=== PATIENT | female | born 1980 | race Caucasian/White ===

== ENCOUNTER 2019-08-04 13:45 | Inpatient (IN) | payer OTHER ==
[~2019-08-04] VITALS: Ht 160 cm; Wt 53.2 kg
[~2019-08-04 13:45] MED LIST: CYCLOBENZAPRINE10 MG PO; FLEXERIL PO; HYDROCODON-ACE1 EAC7 PO; IBUPROFEN 800800 M1 PO; IBUPROFEN 800800 MG PO; NORCO 5-325 TA1 EACH PO; ONDANSETRON HCL4 M2 PO; PAXIL10 MG PO; PERCOCET 5-3251 EACH PO; PROMETHAZINE12.5 M1 PO; SERTRALINE HCL100 MG PO; TRAMADOL 50 MG50 MG PO; ZOFRAN ODT4 MG PO
[2019-08-04 13:55] VITALS: BP 127/62
[2019-08-04 14:16] LABS: INFLUENZA A ANTIGEN Negative (Negative); INFLUENZA B ANTIGEN Negative (Negative)
[2019-08-04 14:37] LABS: HEMATOCRIT 33.5 % (37.0-47.0); HEMOGLOBIN 11.5 gm/dL (12.0-15.0); MCH 29.9 pg (26.0-34.0); MCHC 34.4 g/dL (28.0-37.0); MCV 86.9 fL (80.0-100.0); MPV 9.3 fl. (7.2-11.1); NUCLEATED RBCS 0 /100WBC; PLATELET COUNT* 188 thou/uL (150-400); RBC 3.86 mil/uL (4.20-5.00); RDW-CV 13.5 % (10.5-14.5)
[2019-08-04 14:47] LABS: CALCIUM 8.8 mg/dL (8.5-10.1); CREATININE 1.2 mg/dL (0.6-1.3); POTASSIUM 3.7 mmol/L (3.5-5.1)
[2019-08-04 14:51] LABS: ALBUMIN 2.6 g/dL (3.4-5.0); TOTAL BILIRUBIN 0.7 mg/dL (<0.1-1.0); TOTAL PROTEIN 7.5 g/dL (6.4-8.2)
[2019-08-04 14:58] LABS: ABSOLUTE LYMPHOCYTES 0.6 thou/uL (0.8-5.3); ABSOLUTE MONOCYTES 0.4 thou/uL (0.0-1.2); ABSOLUTE NEUTROPHILS 18.1 thou/uL (1.6-8.1); PLATELET ESTIMATE ADEQUATE
[2019-08-04 17:29] VITALS: BP 125/80
--- NOTE | 2019-08-04 17:48 | NUR ---
227 DID NOT HAVE A BED, LET FÉLIX FERRIS KNOW.
--- NOTE | 2019-08-04 19:24 | NUR ---
PT ARRIVED FROM ER AROUND 1734. ASSESSMENT COMPLETED CHARTED. ABLE TO MAKE NEEDS KNOWN. UP AD NIMA IN ROOM. C/O LL CHEST PAIN AND GAVE PRN PAIN MEDICATIONS CHARTED. RESTING IN BED AT THIS TIME. WILL CONTINUE TO MONITOR.
[2019-08-04 20:00] VITALS: BP 87/46
[2019-08-05] VITALS: BP 103/39
[2019-08-05 02:53] LABS: URINE BILIRUBIN NEGATIVE (Negative); URINE BLOOD 2+ (Negative); URINE CLARITY CLEAR; URINE COLOR YELLOW; URINE GLUCOSE-RANDOM NEGATIVE (Negative); URINE KETONES TRACE (Negative); URINE LEUKOCYTES-REFLEX NEGATIVE (Negative); URINE NITRITE-REFLEX NEGATIVE (Negative); URINE PROTEIN NEGATIVE (Negative); URINE SPECIFIC GRAVITY <= 1.005 (1.005-1.030); URINE UROBILINOGEN 0.2 E.U./dl (0.2-1.0)
[2019-08-05 03:28] LABS: CASTS None Seen /LPF (None Seen); SQUAMOUS >10 Many /LPF (0-3)
[2019-08-05 03:29] LABS: BACTERIA-REFLEX 1-9 Few /HPF (None Seen); CRYSTALS None Seen /LPF (None Seen); URINE RBC 3-10 Few /HPF (0-2); URINE WBC-REFLEX 0-5 Rare /HPF (0-5)
[2019-08-05 04:00] VITALS: BP 106/47
[2019-08-05 04:58] LABS: HEMATOCRIT 28.9 % (37.0-47.0); HEMOGLOBIN 9.9 gm/dL (12.0-15.0); MCH 29.8 pg (26.0-34.0); MCHC 34.1 g/dL (28.0-37.0); MCV 87.3 fL (80.0-100.0); MPV 9.4 fl. (7.2-11.1); RBC 3.31 mil/uL (4.20-5.00); RDW-CV 13.4 % (10.5-14.5); WBC 14.9 thou/uL (4.0-11.0)
[2019-08-05 05:25] LABS: CALCIUM 7.7 mg/dL (8.5-10.1); CREATININE 0.9 mg/dL (0.6-1.3); POTASSIUM 3.6 mmol/L (3.5-5.1)
[2019-08-05 08:00] VITALS: BP 103/53
--- NOTE | 2019-08-05 08:09 | NUR ---
ASSUMED PATIENT CARE AT 1900. ASSESSMENT COMPLETED CHARTED. PATIENT IS ST ON THE MONITOR. HOURLY ROUNDING IN PLACE FOR PATIENT SAFETY. CLWR.
[2019-08-05 11:30] VITALS: BP 124/55
--- NOTE | 2019-08-05 12:46 | NUR ---
Nutrition: Pt admitted with LLL PNA. Assessed for possible sepsis. Albumin 2.6, prealb 7.3 - severely depleted. WBC 14.9. Decreased appetite, dehydration. Physician indicated moderate PCM based on albumin - defer. Regular diet ordered, strawberry allergy. Encourage good po intake at meal times. RD will order Beneprotein for added protein intake. Mild risk.
--- NOTE | 2019-08-05 12:47 | NUR ---
CM ASSESSMENT: VISITED WITH PT IN ROOM. PT HAS NO DME OR HH NEEDS. SHE LIVES AT HOME WITH HER AND 2 SMALL CHILDREN. 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 HER HAS RECENTLY BEEN IN THE HOSPITAL.
--- NOTE | 2019-08-05 13:44 | EKG ---
[place] [address] ELECTROCARDIOGRAM REPORT Name: VLADISLAV GARCIA Room: [place] [address] ADM IN .R.#: [id number] Admission: 08/04/19 Attend Phys: Glo Mir MD Discharge: Date of : 84 Report #: [id number] THIS REPORT FOR: //name// [facility] ED Test Date: 2019-08-04 Test Time: 14:41:30 Pat Name: VLADISLAV GARCIA Department: Room: [facility] Gender: F Blending Coordinator: [place] : 1980 Requested By: Becka Kelley Order Number: [id number] MD: Eliot Cevallos Measurements Intervals [place] Rate: 118 P: -9 LA: 94 QRS: 77 QRSD: 80 T: 5 QT: 318 QTc: 446 Interpretive Statements Sinus tachycardia Borderline T wave abnormalities Compared to ECG 06/26/2013 11:06:17 T-wave abnormality still present Electronically Signed On 08-05-2019 13:43:48 SCRAP SHEAR OPERATOR by Eliot Cevallos [email or web address] <ELECTRONICALLY SIGNED> By: Eliot Cevallos MD, [facility] 08/05/19 1343 1441 [id number] Eliot Cevallos MD, [facility] /EPI
[2019-08-05 16:00] VITALS: BP 106/58
--- NOTE | 2019-08-05 18:57 | NUR ---
RECEVIED REPORT FROM ESTELA FERRIS. ASSUMED CARE OF PT AROUND 0730. PT A&O X4. VSS. FEDERAL APPELLATE CLERK IN PLACE TRACING ST WITH NO CHANGES THIS SHIFT. TACHY IN LOW 100'S, PT ASYMPTOMATIC WITH TACHYCARDIA. AM ASSESSMENT AND VITALS COMPLETED CHARTED. MEDS PER EMAR. PT WITH POOR APPETITE DESPITE ENCOURAGEMENT TO EAT. PT HAS RESTED MOST OF SHIFT. IV PAIN MEDICATION GIVEN FOR COMPLAINT OF RIB AND BACK PAIN WITH RELIEF. PT CURRENTLY RESTING IN BED. CALL LIGHT IS WITHIN REACH. HOURLY ROUNDING PERFORMED. LOW FALL RISK PRECAUTIONS IN PLACE.
[2019-08-05 19:40] VITALS: BP 97/43
--- NOTE | 2019-08-05 23:16 | NUR ---
ASSUMED CARE OF PT AT 1900. PT IS ALERT AND ORIENTED. VSS. PERRLA. NO COMPLAINTS OF PAIN. PT IS RUNNING A FEVER. PT RECIEVED TYLENOL FOR FEVER. PT IS IN SINUS TACHYCARDIA ON THE TELEMETRY. PT IS RESTING COMFORTABLY IN BED. RESPIRATIONS ARE EVEN AND NONLABORED. WILL CONTINUE TO MONITOR PT.
[2019-08-06] VITALS: BP 112/61
[2019-08-06 04:00] VITALS: BP 101/52
[2019-08-06 08:00] VITALS: BP 113/58
[2019-08-06 11:57] VITALS: BP 127/77
[2019-08-06] MEDS ORDERED: FERREX 150 PLU1 EAC1 PO (12:49)
[2019-08-06] MEDS ORDERED: LEVAQUIN 500 M500 M3 PO (12:49)
[2019-08-06] MEDS ORDERED: FOLIC ACID1 MG PO (12:49)
[2019-08-06 13:03] VITALS: BP 127/77
--- NOTE | 2019-08-06 13:31 | NUR ---
RECEIVED REPORT FROM [facility] NURSE VANCE. ASSUMED CARE OF PT AROUND 0730. PT A&O X4, VSS. ELECTRIC RANGE PREPARER IN PLACE TRACING SR. AM ASSESSMENT AND VITALS COMPLETED CHARTED. MEDS PER EMAR. PT REPORTED LEFT RIB PAIN THAT WAS TREATED WITH IV PAIN MEDICATION WITH RELIEF. PT FEELING MUCH BETTER TODAY THAN YESTERDAY. AFEBRILE. DISCHARGE ORDERS RECEIVED. DISCHARGE COMPLETED DOCUMENTED. DISCHARGE SUMMARY, CARE NOTES, AND ELECTRONIC SCRIPTS GONE OVER WITH PT. PT COMMUNICATES UNDERSTANDING. PT AWARE THAT SCRIPTS WERE SENT TO HER PHARMACY. ALL BELONGINGS GATHERED AND LEAVING WITH THE PT. PT AWAITING HER [facility] TO PICK HER UP. CALL LIGHT IS WITHIN REACH. HOURLY ROUNDING PERFORMED. WCTM TILL PT READY TO LEAVE FACILITY.
== END 2019-08-06 14:00 | disposition home or self-care (01) | DRG 194 ==
LOC: M.ERS 13:45 → M.2W 15:07 → M.TBA-ER 15:07 → M.2W 17:56
PROVIDERS: Nurse Practitioner Family; ADMIT Internal Medicine
DX: J15.9 Unspecified bacterial pneumonia (principal); E44.0 Moderate protein-calorie malnutrition; E87.1 Hypo-osmolality and hyponatremia; R65.10 Systemic inflammatory response syndrome (SIRS) of non-infectious origin without acute organ dysfunction; D72.829 Elevated white blood cell count, unspecified; E86.0 Dehydration; E53.8 Deficiency of other specified B group vitamins; D50.9 Iron deficiency anemia, unspecified; Z79.899 Other long term (current) drug therapy; Z91.040 Latex allergy status; Z91.018 Allergy to other foods; Z68.20 Body mass index [BMI] 20.0-20.9, adult